=== PATIENT | female | born 1995 | race Hispanic/Latino ===

== ENCOUNTER 2018-10-18 10:13 | Inpatient (IN) | payer OTHER ==
[2018-10-18 11:10] LABS: RPR Titer ND
[2018-10-18 11:16] LABS: Absolute Lymphocytes (CBC) 1.1 K/uL (0.7-4.9); Absolute Monocytes 0.6 K/uL (0.1-1.3); Absolute Neutrophil 4.4 K/uL (1.8-8.0); Basophils % 0.2 % (0-1.3); Eosinophils % 3.4 % (0-4.4); Hematocrit 39.8 % (36.0-45.0); Lymphocytes % 17.2 % (15.3-44.8); MPV 10.2 fL (7.6-11.3); Monocytes % 8.9 % (3.3-12.3); RBC Red Blood Cell Count 4.78 M/uL (3.86-4.86); Urine Appearance CLOUDY; Urine Bilirubin NEGATIVE (NEG); Urine Blood NEGATIVE (NEG); Urine Color DK YELLOW; Urine Glucose NEGATIVE (NEG); Urine Protein 1+ (NEG); Urine Specific Gravity >=1.030 (1.005-1.030)
[2018-10-18] MEDS ORDERED: miSOPROStol 100 MCG TAB VAG SCH (11:17)
[2018-10-18] MEDS ORDERED: BUTORPHANOL 1 MG/ML INJ IV PRN (11:24)
[2018-10-18] MEDS ORDERED: PROMETHAZINE 25 MG/ML VIAL IV PRN (11:24)
[2018-10-18] MEDS ORDERED: METHYLERGONOVINE 0.2MG/ML AMP IM PRN (11:24)
[2018-10-18] MEDS ORDERED: Ringers Lactate 1,000 ML IV PRN (11:24)
[2018-10-18] MEDS ORDERED: CARBOPROST TROME 250 MCG/ML IM PRN (11:24)
[2018-10-18] MEDS ORDERED: miSOPROStol 100 MCG TAB ONE ×2 (11:25→11:26)
[2018-10-18 11:31] LABS: Urine Microscopic Reflex ORDER UMIC
[2018-10-18 11:52] LABS: Urine Bacteria 20-50 /HPF (<20); Urine RBC <5 /HPF (NONE SEEN)
[2018-10-18 11:53] LABS: Urine Culture Reflex Order REFLEXED
[2018-10-18 12:00] LABS: ALT/SGPT 22 U/L (12-78); AST/SGOT 16 U/L (15-37); Albumin 2.6 g/dL (3.4-5.0); Alkaline Phosphatase 227 U/L (45-117); BUN Blood Urea Nitrogen 13 mg/dL (7-18); Bicarbonate 18 mmol/L (21-32); Bilirubin Direct < 0.1 mg/dL (0-0.2); Bilirubin Total 0.3 mg/dL (0.2-1.0); Glucose Level 76 mg/dL (74-106); Potassium 3.8 mmol/L (3.5-5.1); Protein, Total 6.5 g/dL (6.4-8.2); Sodium Level 142 mmol/L (136-145); Uric Acid 4.4 mg/dL (2.6-6.0)
[2018-10-18] MEDS ORDERED: Ringers Lactate 1,000 ML IV SCH (12:00)
[2018-10-18] MEDS ORDERED: OXYTOCIN/LR 20 UNIT/1,000 ML BAG IV SCH (12:00)
[2018-10-18 12:21] LABS: Protime INR 0.97
[2018-10-18 12:22] VITALS: BMI 33.2
[2018-10-18] MEDS ORDERED: FENTANYL CITR 100 MCG/2 ML IV ONE (20:37)
[2018-10-18] MEDS ORDERED: FENTANYL/BUPIVACAINE/NS/PF 200 MCG/100 ML BAG EP PRN (20:37)
--- NOTE | 2018-10-18 21:07 | P.PN ---
Date of Service: 10/18/18 Patient seen and examined at bedside. Pain is under control. Patient due for next cytotec but is allison very regularly. VSS Laboratory Tests 10/18/18 10/18/18 10/18/18 10:34 10:34 10:34 WBC 6.3 Hgb 13.3 Hct 39.8 Plt Count 160 Uric Acid 4.4 AST 16 ALT 22 Urine Total Protein 1+ H GEN: resting comfortably in bed Head/Neck: NCAT, supple. Resp: symmetric non labored breathing Abd: gravid Vaginal exam: 1cm dilated/ 50% effaced/ -3; AROM performed - clear fluid (GBS neg) Patient is a 23 y/o at 38 weeks and 3 days gestation with gestational diabetes and gestational thrombocytopenia. Pitocin started. Epidural placement at patient's request. Continuous maternal monitoring.
[2018-10-18 21:23] LABS: RPR (Rapid Plasma Reagin) NON-REACT (NON-REACT)
[2018-10-18] MEDS ORDERED: BUPIVACAINE 0.25% PF 10 ML VIAL ONE (21:37)
[2018-10-19] MEDS ORDERED: LIDOCAINE 1% 20 ML MDV IV ONE (02:02)
[2018-10-19] MEDS ORDERED: CARBOPROST TROME 250 MCG/ML IM ONE (02:14)
[2018-10-19] MEDS ORDERED: METHYLERGONOVINE 0.2MG/ML AMP IM ONE (02:14)
[2018-10-19] MEDS ORDERED: BUPIVACAINE 0.25% PF 10 ML VIAL IV PRN ×2 (03:12→03:16)
[2018-10-19] MEDS ORDERED: FENTANYL CITR 100 MCG/2 ML IV ONE (03:13)
[2018-10-19] MEDS ORDERED: FENTANYL CITR 100 MCG/2 ML ONE (03:47)
[2018-10-19] MEDS ORDERED: BUPIVACAINE 0.25% PF 10 ML VIAL ONE (03:48)
[2018-10-19] MEDS ORDERED: BISACODYL 10 MG RECTAL SUPP RECT PRN (06:43)
[2018-10-19] MEDS ORDERED: ONDANSETRON 4 MG (ODT) TAB PO PRN (06:43)
[2018-10-19] MEDS ORDERED: ACETAMINOPHEN 500 MG TAB PO PRN (06:43)
[2018-10-19] MEDS ORDERED: ZOLPIDEM TARTRATE 5 MG TABLET PO PRN (06:43)
[2018-10-19] MEDS ORDERED: METHYLERGONOVINE 0.2 MG TAB PO PRN (06:43)
[2018-10-19] MEDS ORDERED: DOCUSATE NA/SENNA CONC 1 TAB PO PRN (06:43)
[2018-10-19 07:22] LABS: Absolute Monocytes 0.9 K/uL (0.1-1.3); Basophils % 0.2 % (0-1.3); Eosinophils % 0.2 % (0-4.4); Hematocrit 36.5 % (36.0-45.0); Lymphocytes % 10.1 % (15.3-44.8); MPV 9.8 fL (7.6-11.3); Monocytes % 9.2 % (3.3-12.3); RBC Red Blood Cell Count 4.33 M/uL (3.86-4.86)
[2018-10-19] MEDS: GENTAMICIN 80 MG/100 ML BAG 80 MG/100 ML BAG IV SCH ×2 (07:45→19:36)
[2018-10-19] MEDS: AMPICILLIN SODIUM 2 GM in NA CHLORIDE 0.9% 100 ML IVPB SCH ×3 (08:20→20:00)
[2018-10-19] MEDS ORDERED: Gentamicin Inj 80 MG in NA CHLORIDE 0.9% 100 ML IVPB SCH (09:00)
[2018-10-19] MEDS ORDERED: GENTAMICIN 80 MG/100 ML BAG 80 MG/100 ML BAG IV SCH (09:00)
[2018-10-19] MEDS: IBUPROFEN 200 MG TAB PO PRN ×2 (09:35→19:49)
[2018-10-19] MEDS: Oxycodone HCl/Acetaminophen 1 TAB TAB PO PRN ×2 (10:30→16:45)
[2018-10-19] MEDS ORDERED: AMPICILLIN SODIUM 2 GM in NA CHLORIDE 0.9% 100 ML IVPB SCH (12:00)
--- NOTE | 2018-10-19 20:14 | P.OP ---
Date of Service: 10/19/18 Findings and Operative Technique The patient is a 23-year-old status post vaginal delivery. Patient delivered a viable male infant in cephalic presentation on October 19, 2018 at 6: 16 a.m.. Infant was delivered over a midline episiotomy. Shoulder dystocia was and countered make Rufino procedure was performed and the right arm was 1st delivered. Once the infant was delivered. The nose and mouth were suctioned with a suction bulb. Cord was clamped and cut. Infant was then placed on mother's abdomen for skin to skin bonding. Cord blood was obtained. Placenta was then delivered with gentle traction at 6:19 a.m.. Uterine massage was then performed due to brisk bleeding. Methargen was given IM. Pitocin was started. Attention was then turned to the episiotomy which was repaired with a 2 0 Vicryl in the usual fashion. Bleeding was still noted to be present therefore Hemabate was then given as well. Bleeding was then noted to be under control. Fundus was palpated and found to be firm. EBL was 500 cc. Mother's temperature is noted to be 99 F. Baby was found to have a temperature of 102. Therefore patient was started on antibiotics. CBC has been ordered as well. Apgars were found to be 9 and 9. Weight was found to be 8 lb 8 oz. 1st stage of labor was 9 hr and 39 min. 2nd stage was approximately 45 min. Patient will be monitored for fevers. If WBC count is stable then antibiotics will be discontinued. Patient is bonding well with the baby and will be breast-feeding.
[2018-10-20] MEDS: AMPICILLIN SODIUM 2 GM in NA CHLORIDE 0.9% 100 ML IVPB SCH ×2 (02:00→09:20)
[2018-10-20] MEDS: Oxycodone HCl/Acetaminophen 1 TAB TAB PO PRN (05:46)
[2018-10-20 06:23] LABS: Absolute Lymphocytes (CBC) 1.4 K/uL (0.7-4.9); Absolute Monocytes 0.8 K/uL (0.1-1.3); Basophils % 0.2 % (0-1.3); Eosinophils % 1.7 % (0-4.4); Hematocrit 28.5 % (36.0-45.0); Lymphocytes % 13.8 % (15.3-44.8); MPV 9.8 fL (7.6-11.3); Monocytes % 7.6 % (3.3-12.3); RBC Red Blood Cell Count 3.34 M/uL (3.86-4.86)
[2018-10-20] MEDS: GENTAMICIN 80 MG/100 ML BAG 80 MG/100 ML BAG IV SCH ×2 (08:15→09:20)
[2018-10-20 11:48] VITALS: BP 100/58; TEMP 97.6
--- NOTE | 2018-10-20 17:03 | P.DS ---
Admission Date: 10/18/18 Discharge Date: 10/20/18 Disposition: ROUTINE DISCHARGE Discharge Condition: GOOD Brief History of Present Illness: See H&P Hospital Course: Patient was admitted for induction of labor as per recommendation of [facility] due to history of gestational diabestes A2 and possible preeclampsia as well as gestational thrombocytopenia. She did well and delivered vaginally. Since the delivery she has been bonding well with the baby. She was placed on antibiotics for 24 hours due to having a low grade temp a5 delivery and the baby being febrile. She has been afebrile and the WBC have been normal. She is tolerating a regular diet. She is voiding without issues. Her pain is well controlled. Vital Signs/Physical Exam: Temp Pulse Resp BP Pulse Ox 97.6 F 79 16 100/58 L 10/20/18 11:00 10/20/18 11:00 10/20/18 11:00 10/20/18 11:00 General: Alert, In no apparent distress HEENT: Atraumatic Neck: Supple Respiratory: Normal air movement Cardiovascular: No edema Gastrointestinal: Soft and benign (fundus firm palpable beneath umbilicus) Musculoskeletal: No clubbing, No swelling Neurological: Normal gait, Normal speech Laboratory Data at Discharge: WBC 10.4 K/uL (4.3-10.9) 10/20/18 05:54 Hgb 9.5 g/dL (12.0-15.0) L D 10/20/18 05:54 Hct 28.5 % (36.0-45.0) L D 10/20/18 05:54 Plt Count 136 K/uL (152-406) L 10/20/18 05:54 PT 11.4 SECONDS (9.5-12.5) 10/18/18 11:56 INR 0.97 10/18/18 11:56 APTT 27.2 SECONDS (24.3-36.9) 10/18/18 11:56 Sodium 142 mmol/L (136-145) 10/18/18 10:34 Potassium 3.8 mmol/L (3.5-5.1) 10/18/18 10:34 BUN 13 mg/dL (7-18) 10/18/18 10:34 Creatinine 0.63 mg/dL (0.55-1.3) 10/18/18 10:34 Glucose 76 mg/dL (74-106) 10/18/18 10:34 Uric Acid 4.4 mg/dL (2.6-6.0) 10/18/18 10:34 Total Bilirubin 0.3 mg/dL (0.2-1.0) 10/18/18 10:34 AST 16 U/L (15-37) 10/18/18 10:34 ALT 22 U/L (12-78) 10/18/18 10:34 Alkaline Phosphatase 227 U/L (45-117) H 10/18/18 10:34 Home Medications: Pnv Cmb#95/Ferrous Fumarate/FA [ Tablet] 1 tab PO DAILY 10/18/18 glyBURIDE [Glyburide] 1 tab PO BEDTIME 10/18/18 Diet: Regular Activity: No lifting more than 10 lbs Followup: Jairo Vu DO [Family Provider] - (Follow up care with Dr. Vu in 6 weeks for post visit. [phone])
[2018-10-21 03:28] LABS: HBsAG Nonreactive (Nonreactive)
== END 2018-10-20 13:45 | disposition home or self-care (01) | DRG 832 ==
LOC: 2ND-WC 10:13
PROVIDERS: ADMIT Student in an Organized Health Care Education/Training Program; ATTEND Student in an Organized Health Care Education/Training Program
PROC: 0W8NXZZ Division of Female Perineum, External Approach (ICD-10-PCS; principal; 2018-10-19)
PROC: 10907ZC Drainage of Amniotic Fluid, Therapeutic from Products of Conception, Via Natural or Artificial Opening (ICD-10-PCS; 2018-10-19)
DX: O66.0 Obstructed labor due to shoulder dystocia (principal); O75.2 Pyrexia during labor, not elsewhere classified; O99.12 Other diseases of the blood and blood-forming organs and certain disorders involving the immune mechanism complicating childbirth; D69.6 Thrombocytopenia, unspecified; O14.94 Unspecified pre-eclampsia, complicating childbirth; Z3A.38 38 weeks gestation of pregnancy; Z37.0 Single live birth
CPT/HCPCS: 36415; 80048; 80076; 80170; 81003; 81015; 84550; 85025; 85610; 85730; 86592; 86850; 86900; 86901; 87086; 87088; 87340; 88307; J0290; J0595; J1580; J2210; J2550; J2590; J3010